=== PATIENT | male | born 1955 | race Caucasian/White ===

== ENCOUNTER 2019-05-25 08:02 | Outpatient (CLI) | payer BC, SELFPAY ==
--- NOTE | ~2019-05-25 | CT_ITS ---
EXAMINATION: CT lung screening EXAM DATE: 05/25/2019 08:43 INDICATION: Personal history of nicotine dependence. TECHNIQUE: Spiral low dose CT of the chest without contrast. Axial, coronal and sagittal images were reviewed. The dose-length product (DLP) for this examination was 108.99 mGy-cm. The exposure was t ailored according to patient size (auto mA exposure control), and iterative reconstruction (ASIR) was used as additional dose reduction technique. There is no prior study for comparison. FINDINGS: Left upper lobe calcified granuloma. The lungs are otherwise clear. Small amount of debr is within the trachea. There is moderate hyperinflation. Mild emphysema. There is no mediastinal, hi lar or axillary lymphadenopathy. There are no pleural or pericardial effusions. There is no pneum othorax. Heart normal in size. There is mild to moderate coronary arterial calcification, arteria l sclerosis. Aberrant right subclavian artery, congenital variant. Upper abdomen is unremarkable. There is thoracic spondylosis without osteoblastic or osteolytic lesions identified. IMPRESSION: Lung-RADS category 1, negative (<1%chance of malignancy); recommend continued LDCT screen ing in 1 year. Reviewed, dictated and finalized at location A. R SALES MANAGER IMPRESSION: Lung-RADS category 1, negative (<1%chance of malignancy); recommend continued LDCT screening in 1 year.
--- NOTE | ~2019-05-25 | CT_ITS ---
EXAMINATION: CT abdomen pelvis w con EXAM DATE: 05/25/2019 08:43 INDICATION: Right lower quadrant pain. TECHNIQUE: Spiral CT of the abdomen and pelvis was performed following intravenous injection of 100 m L Omnipaque 350. Axial, coronal and sagittal images were reviewed. The dose-length product (DLP) fo r this examination was 483.32 mGy-cm. The exposure was tailored according to patient size (auto mA e xposure control), and iterative reconstruction (ASIR) was used as additional dose reduction technique . There is no prior study for comparison. Correlation was made with noncontrast CT chest same date. FINDINGS: There is a right adrenal gland adenoma measuring 1.8 cm. The left adrenal gland, liver, fink creas are unremarkable. Splenic granulomata. Gallbladder is unremarkable. No biliary obstruction. Portal and splenic veins are patent. Kidneys enhance symmetrically. There is no hydronephrosis. Rig ht renal cyst measuring 1.6 cm. There is mild prostatomegaly. Some diffuse bladder wall thickening, could indicate chronic cystitis. Acute cystitis not excludable. There is no retroperitoneal or pelvi c lymphadenopathy. There is moderate scattered arteriosclerotic disease. Small umbilical, periumbil ical fat-containing hernias. The appendix is normal. The stomach and small bowel are unremarkable. There is expected amount of c olonic stool. There is moderate sigmoid predominant colonic diverticulosis. There is no adjacent inf lammatory change to suggest diverticulitis. The heart is normal in size. There are no pericardial or pleural effusions. The lung bases are unremarkable. There are no osteoblastic or osteolytic lesion s identified. There is chronic bilateral L5 spondylolysis with 3 mm anterolisthesis L5 on S1. IMPRESSION: 1. No acute intra-abdominal findings. 2. Sigmoid predominant colonic diverticulosis. 3. Small umbilical, periumbilical hernias. 4. Right adrenal adenoma. Reviewed, dictated and finalized at location A. OGRAMMETRIC TECH
[2019-05-25 08:33] LABS: Blood Urea Nitrogen 14 mg/dL (8-26); Estimated Glomerular Filt Rate > 60
[2019-05-25 09:10] LABS: Hematocrit 47.5 % (42.0-52.0); Hemoglobin 16.2 g/dL (14.0-18.0); Mean Corpuscular HGB Conc 34.1 g/dl (32-36); Mean Corpuscular Volume 93.9 fl (80-100); Mean Platelet Volume 11.6 fl (7.4-10.4); Platelet Count Result 194 k/mm3 (150-375); Red Blood Count 5.06 M/mm3 (4.6-6.20); Red Cell Distribution Width 14.7 % (11.5-14.5); White Blood Count 9.6 K/mm3 (4.5-10.0)
[2019-05-25 09:47] LABS: Alanine Aminotransferase 23 U/L (4-50); Alkaline Phosphatase 63 U/L (38-126); Aspartate Amino Transferase 24 U/L (17-59); Bilirubin,Total 0.5 mg/dL (0.2-1.3); Blood Urea Nitrogen 14 mg/dL (9-20); Calcium 9.1 mg/dL (8.4-10.2); Carbon Dioxide 24 mmol/L (22-30); Chloride 103 mmol/L (98-107); Estimated Glomerular Filt Rate > 60; Glucose 91 mg/dL (75-110); Potassium 4.3 mmol/L (3.4-5.0); Sodium 139 mmol/L (137-145)
[2019-05-25 09:53] LABS: Vitamin D 25 Hydroxy 26.9 ng/mL
[2019-05-30 13:55] LABS: Testosterone Free 76.3 pg/mL (35.0-155.0); Testosterone Total 426 ng/dL (250-1100)
== END 2019-05-25 08:03 | disposition home or self-care (01) ==
LOC: ANHIMG 08:48
PROVIDERS: PCP Family Medicine; Visit Provider Physician Assistant Medical
DX: Z12.2 Encounter for screening for malignant neoplasm of respiratory organs (principal); K42.9 Umbilical hernia without obstruction or gangrene; R10.31 Right lower quadrant pain; R10.32 Left lower quadrant pain; Z12.5 Encounter for screening for malignant neoplasm of prostate; E78.5 Hyperlipidemia, unspecified; R53.82 Chronic fatigue, unspecified; K57.30 Diverticulosis of large intestine without perforation or abscess without bleeding; Z87.891 Personal history of nicotine dependence; K44.9 Diaphragmatic hernia without obstruction or gangrene; D35.01 Benign neoplasm of right adrenal gland
CPT/HCPCS: 36415; 74177; 80053; 82306; 82607; 84153; 84402; 84403; 84443; 85027; G0297; Q9967

== ENCOUNTER 2019-05-31 01:43 | Day surgery (SDC) | payer BC, SELFPAY ==
[2019-05-25 15:07] VITALS: BMI 25.9
[2019-05-31 07:55] VITALS: BP 129/76; PULSE 62; RESP 16; TEMP 36.6; O2SAT 96
[2019-05-31] MEDS: LACTATED RINGERS 1,000 ML 150 ML IV CONT (07:57)
--- NOTE | 2019-05-31 08:09 | WPDANESEPPF ---
Anes - Initial Pre Proc Eval Procedure: Operation Date: 05/31/19 08:30 Proposed Procedures p Screening Colonoscopy - Wale Mix MD Date/Time: 05/31/19 08:09 Surgeon: Wale Mix MD Pre Op Diagnosis: Neoplasm Screening, Hx of Colon Polyps Patient Data Age: 63 Gender: M Height: 5 ft 10 in Weight: 81.4 kg Last Vital Signs Temp 36.6 C 05/31/19 07:55 Pulse 62 05/31/19 07:55 Resp 16 05/31/19 07:55 BP 129/76 05/31/19 07:55 Pulse Ox 96 05/31/19 07:55 Allergies Allergy/AdvReac Type Severity Reaction Status Date / Time No Known Allergies Allergy Verified 05/25/19 15:05 Home Medications Medication Instructions Recorded Confirmed Type rosuvastatin 40 mg tablet 40 mg PO DAILY #60 tablet 05/15/19 05/25/19 Rx Patient hx anesthesia problems: none Family hx anesthesia problems: none PMFSH Social History Social History Smoking status: Smoker, status unknown Alcohol intake: current Anes - Eval Final PreProcedure Day of Procedure 05/31/19 08:09 Patient weight: overweight Heart: regular rate and rhythm Lungs: clear to auscultation Airway: Mallampati scale class II and other (dentures) Neurological: alert and oriented Last oral intake: >/= 8 hours ASA classification: III Emergent: no Anesthetic plan: proceed Anesthesia type and monitoring: general GIVS and standard monitoring Informed Consent: The patient's anesthetic plan and its attendant risks and benefits were discussed with the patient/family/POA. Questions were solicited and answers provided to the satisfaction of the patient/family/POA.
--- NOTE | 2019-05-31 08:36 | P.CONGI_ITS ---
Assessment and Plan Additional Plan This is a 63-year-old white male patient seen in evaluation at the request of Dr. Aditya Valero. Patient presents for colonoscopy. Patient's last colonoscopy 2014 had several adenomatous colon polyps. Patient states that his current weight appetite bowel movements are normal. He denies any blood in his stools he denies abdominal pain. His weight has remained stable. Family history is significant 2 sisters have had colon polyps as well. Past medical history is significant for elevated cholesterol. Current medications include rosuvastatin. No known medical allergies. Physical exam reveals patient to be alert. Vital signs stable. HEENT exam unremarkable. Lungs are clear to auscultation and percussion. Heart is without murmur or extra sounds. Abdominal exam bowel sounds are present soft nontender with no organomegaly. Digital external rectal exam is normal. Impression 1. Personal history of colon polyps. 2. Family history of colon polyps. Plan is for surveillance colonoscopy now and at 5 year intervals in the future. GI Consult Note Consult date/time: 05/31/19 08:36 HPI: Agus Torres is a 63 year old male [facility] Social History Social History Smoking status: Smoker, status unknown Alcohol intake: current Meds Home Medications and Allergies Home Medications Medication Instructions Recorded Confirmed Type rosuvastatin 40 mg tablet 40 mg PO DAILY #60 tablet 05/15/19 05/25/19 Rx Allergies Allergy/AdvReac Type Severity Reaction Status Date / Time No Known Allergies Allergy Verified 05/25/19 15:05 Vital Signs Vital Signs - 24 hr 05/31/19 07:55 Temperature 36.6 C Pulse Rate 62 Respiratory Rate 16 Blood Pressure 129/76 Pulse Oximetry 96
[2019-05-31 09:03] VITALS: BP 111/72; PULSE 55; RESP 18; O2SAT 97
[2019-05-31 09:13] VITALS: BP 108/75; PULSE 52; RESP 18; O2SAT 97
[2019-05-31 09:23] VITALS: BP 112/74; PULSE 62; RESP 17; O2SAT 97
== END 2019-05-31 09:55 | disposition home or self-care (01) ==
PROVIDERS: PCP Family Medicine; Visit Provider Internal Medicine Gastroenterology
PROC: 0DJD8ZZ Inspection of Lower Intestinal Tract, Via Natural or Artificial Opening Endoscopic (ICD-10-PCS; CPT 45378; principal; 2019-05-31 08:30)
DX: Z12.11 Encounter for screening for malignant neoplasm of colon (principal); D12.5 Benign neoplasm of sigmoid colon; K63.5 Polyp of colon; K57.30 Diverticulosis of large intestine without perforation or abscess without bleeding; K64.8 Other hemorrhoids; Z83.71 Family history of colonic polyps; E78.00 Pure hypercholesterolemia, unspecified
CPT/HCPCS: 45385; 88305; J2704; J7120

== ENCOUNTER 2021-02-27 07:23 | Outpatient (CLI) | payer BC, SELFPAY ==
[2021-02-27 07:57] LABS: Hematocrit 45.7 % (42.0-52.0); Hemoglobin 15.9 g/dL (14.0-18.0); Mean Corpuscular HGB Conc 34.8 g/dl (32-36); Mean Corpuscular Hemoglobin 32.4 pg (26-34); Mean Corpuscular Volume 93.1 fl (80-100); Mean Platelet Volume 10.2 fl (7.4-10.4); Platelet Count Result 289 k/mm3 (150-375); Red Blood Count 4.91 M/mm3 (4.6-6.20); Red Cell Distribution Width 14.7 % (11.5-14.5); White Blood Count 11.2 K/mm3 (4.5-10.0)
[2021-02-27 08:13] LABS: Alanine Aminotransferase 22 U/L (4-50); Albumin Level 4.3 g/dL (3.5-5.1); Alkaline Phosphatase 55 U/L (38-126); Anion Gap 7 mmol/L (8-16); Aspartate Amino Transferase 23 U/L (17-59); Bilirubin,Total 0.6 mg/dL (0.2-1.3); Blood Urea Nitrogen 16 mg/dL (9-20); Calcium 8.9 mg/dL (8.4-10.2); Carbon Dioxide 25 mmol/L (22-30); Chloride 106 mmol/L (98-107); Cholesterol 239 mg/dL (0-200); Estimated Glomerular Filt Rate > 60; Glucose 102 mg/dL (65-110); HDL Direct 45 mg/dL; Potassium 3.9 mmol/L (3.4-5.0); Sodium 138 mmol/L (137-145); Triglycerides 215 mg/dL (<150)
[2021-02-27 08:24] LABS: LDL Cholesterol Direct 123 mg/dL
[2021-02-27 08:42] LABS: Prostate Specific Antigen 3.5 ng/mL (< OR = 4.0)
[2021-02-27 10:13] LABS: Vitamin D 25 Hydroxy 21.1 ng/mL
== END 2021-02-27 07:24 | disposition home or self-care (01) ==
PROVIDERS: PCP Family Medicine; Visit Provider Nurse Practitioner Family
DX: E78.5 Hyperlipidemia, unspecified (principal); Z72.0 Tobacco use; R73.09 Other abnormal glucose; Z13.29 Encounter for screening for other suspected endocrine disorder; E55.9 Vitamin D deficiency, unspecified; Z12.5 Encounter for screening for malignant neoplasm of prostate
CPT/HCPCS: 36415; 80053; 80061; 82306; 84153; 84443; 85027; G0103

== ENCOUNTER 2023-02-25 07:04 | Outpatient (CLI) | payer BC, SELFPAY ==
[2023-02-25 08:17] LABS: Hematocrit 47.1 % (42.0-52.0); Mean Corpuscular Volume 94.2 fl (80-100); Mean Platelet Volume 10.4 fl (7.4-10.4); Platelet Count Result 282 k/mm3 (150-375); White Blood Count 10.3 K/mm3 (4.5-10.0)
[2023-02-25 09:02] LABS: Vitamin D 25 Hydroxy 25.1 ng/mL
[2023-02-25 09:59] LABS: Alanine Aminotransferase 35 U/L (6-50); Albumin Level 4.3 g/dL (3.5-5.1); Alkaline Phosphatase 58 U/L (38-126); Anion Gap 4 mmol/L (8-16); Aspartate Amino Transferase 29 U/L (17-59); Bilirubin,Total 0.9 mg/dL (0.2-1.3); Blood Urea Nitrogen 14 mg/dL (9-20); Calcium 9.4 mg/dL (8.4-10.2); Carbon Dioxide 27 mmol/L (22-30); Chloride 107 mmol/L (98-107); Cholesterol 124 mg/dL (0-200); Estimated Glomerular Filt Rate > 60; Glucose 98 mg/dL (65-110); HDL Direct 45 mg/dL; Potassium 3.8 mmol/L (3.4-5.0); Sodium 138 mmol/L (137-145); Triglycerides 113 mg/dL (<150)
[2023-02-25 10:11] LABS: LDL Cholesterol Direct 54 mg/dL
[2023-02-25 10:31] LABS: Prostate Specific Antigen 3.8 ng/mL (< OR = 4.0)
== END 2023-02-25 07:05 | disposition home or self-care (01) ==
LOC: ANHLAB 07:06
PROVIDERS: PCP Family Medicine; Visit Provider Nurse Practitioner Family
DX: Z13.29 Encounter for screening for other suspected endocrine disorder (principal); E55.9 Vitamin D deficiency, unspecified; Z12.5 Encounter for screening for malignant neoplasm of prostate; R73.09 Other abnormal glucose; E78.5 Hyperlipidemia, unspecified
CPT/HCPCS: 36415; 80053; 80061; 82306; 84153; 84443; 85027; G0103

== ENCOUNTER 2024-07-04 07:14 | Outpatient (CLI) | payer MEDICARE, SELFPAY ==
--- OUTSIDE RECORDS SUMMARY | 2024-07-04 07:18 | XMS_ITS | Clinical Summary ---
Author Organization [facility] Address [address] [place] [id number] Phone [email or web address] [email or web address] Care Team Providers Care Rn Psychiatric Name Role Phone Unavailable Primary Care Provider Unavailabl e Social History Tobacco Use Types Packs/Day Years Used Date Smoking Tobacco: Never Assessed Intimate Partner Violence Answer Date R ecorded Insults You Not on file 07/29/2020 Threatens You Not on file 07/29/2020 Screams at You Not on file 07/29/2020 Physically Hurt Not on file 07/29/2020 Intimate Partner Violence Score Not on file 07/29/2020 Stress Answer Date Recorded Stress in your Life Not on file 02/20/2024 Dealing with Stress 3 02/20/2024 Sex and Gender Information Value Date Recorded Sex Assigned at Not on file Legal Sex 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
[2024-07-04 08:19] LABS: Basophils Absolute Auto 0.1 K/mm3 (0.0-0.1); Eosinophils Absolute Auto 0.9 K/mm3 (0-0.3); Eosinophils Percent Auto 9.9 % (0-4.4); Hematocrit 50.7 % (42.0-52.0); Hemoglobin 17.1 g/dL (14.0-18.0); Immature Granulocyte Absolute 0.11 K/mm3 (0.00-0.031); Immature Granulocyte Percent A 1.2 % (0-0.5); Lymphocytes Absolute Auto 1.56 K/mm3 (0.9-3.2); Lymphocytes Percent Auto 17.3 % (18.3-44.2); Mean Corpuscular HGB Conc 33.7 g/dl (32-36); Mean Corpuscular Hemoglobin 31.6 pg (26-34); Mean Corpuscular Volume 93.7 fl (80-100); Mean Platelet Volume 10.2 fl (7.4-10.4); Monocytes Absolute Auto 0.9 K/mm3 (0.1-0.6); Monocytes Percent Auto 9.4 % (2.6-8.5); Neutrophils Absolute Auto 5.5 K/mm3 (1.3-6.7); Neutrophils Percent Auto 61.2 % (45.5-73.1); Platelet Count Result 341 k/mm3 (150-375); Red Blood Count 5.41 M/mm3 (4.6-6.20); Red Cell Distribution Width 14.5 % (11.5-14.5)
[2024-07-04 08:28] LABS: Alanine Aminotransferase 25 U/L (6-50); Albumin Level 4.6 g/dL (3.5-5.1); Alkaline Phosphatase 67 U/L (38-126); Anion Gap 10 mmol/L (4-12); Aspartate Amino Transferase 25 U/L (17-59); Bilirubin,Total 1.1 mg/dL (0.2-1.3); Blood Urea Nitrogen 13 mg/dL (9-20); Calcium 9.3 mg/dL (8.4-10.2); Carbon Dioxide 24 mmol/L (22-30); Chloride 104 mmol/L (98-107); Cholesterol 258 mg/dL (0-200); Estimated Glomerular Filt Rate > 60; Glucose 103 mg/dL (65-110); HDL Direct 53 mg/dL; Potassium 3.9 mmol/L (3.4-5.0); Sodium 138 mmol/L (137-145); Triglycerides 189 mg/dL (<150)
[2024-07-04 08:40] LABS: LDL Cholesterol Direct 132 mg/dL
[2024-07-04 08:58] LABS: Prostate Specific Antigen 4.1 ng/mL (< OR = 4.0)
[2024-07-04 10:20] LABS: Vitamin D 25 Hydroxy 33.1 ng/mL
== END 2024-07-04 07:15 | disposition home or self-care (01) ==
PROVIDERS: PCP Family Medicine; Visit Provider Nurse Practitioner Family
DX: E55.9 Vitamin D deficiency, unspecified (principal); E78.5 Hyperlipidemia, unspecified; Z13.29 Encounter for screening for other suspected endocrine disorder; Z12.5 Encounter for screening for malignant neoplasm of prostate; Z13.1 Encounter for screening for diabetes mellitus; Z72.0 Tobacco use
CPT/HCPCS: 36415; 80053; 80061; 82306; 84153; 84443; 85025; G0103

== ENCOUNTER 2024-07-12 11:30 | Outpatient (CLI) | payer MEDICARE, SELFPAY ==
--- NOTE | ~2024-07-12 | CT_ITS ---
EXAMINATION: CT lung screening DATE: 07/12/2024 11:52 INDICATION: Screening for malignant neoplasm. TECHNIQUE: Computed tomography (CT) of the chest was performed without intravenous contrast. The dose -length product was 111.85 mGy-cm. Automated exposure control and iterative reconstruction technique were employed. COMPARISON: CT dated 05/25/2019 FINDINGS: No significant pleural or pericardial effusion. Heart size normal. No thoracic lymphadenopa thy. There is atherosclerosis. Possible small exophytic left renal mass on final image 127. Recommend correlation with CT abdomen without and with contrast. Stable 2 cm low-density right adrenal mass, c onsistent with adenoma. Calcified granulomas in the spleen. Calcified granulomas in the left upper lo be. IMPRESSION: 1. Lung-RADS category 1: Negative. Continue annual screening with noncontrast low-dose chest CT in 12 months. Reviewed, dictated and finalized at location A. IMPRESSION: 1. Lung-RADS category 1: Negative. Continue annual screening with noncontrast l ow-dose chest CT in 12 months.
== END 2024-07-12 11:31 | disposition home or self-care (01) ==
PROVIDERS: PCP Family Medicine; Visit Provider Nurse Practitioner Family
DX: Z12.2 Encounter for screening for malignant neoplasm of respiratory organs (principal); Z87.891 Personal history of nicotine dependence
CPT/HCPCS: 71271

== ENCOUNTER 2024-08-01 10:52 | Outpatient (CLI) | payer MEDICARE, SELFPAY ==
--- NOTE | ~2024-08-01 | CT_ITS ---
CT of the Abdomen: Indication: Other disorder kidney and ureter Technique: 2.5 mm axial scans were obtained through the abdomen prior to and following intravenous a dministration of 100 cc of Omnipaque 350. Dose reduction technique was used on this scan by utilizing automated exposure control and iterative reconstruction technique. The dose-length product (DLP) was 957.73 mGy-cm. COMPARISON: 05/25/2019 Findings: Scans through the lung bases are unremarkable. The liver, spleen, pancreas, gallbladder, left adrenal gland, and right kidney are within normal limi ts. 2 cm low-density right adrenal nodules compatible with adenoma. 14 mm hyperdense left renal cyst present, without postcontrast enhancement. There are atherosclerotic calcifications of the aorta and iliac vessels. No lymphadenopathy. . Visualized bowel loops are unremarkable. No ascites. Small fat-containing umbilical hernia. Bilateral L5 pars interarticularis defects are present. Impression: Stable right adrenal adenoma. 14 mm hyperdense left renal cyst. Reviewed, dictated and finalized at [facility]. Impression: Stable right adrenal adenoma. 14 mm hyperdense left renal cyst.
[2024-08-01 11:16] LABS: Estimated Glomerular Filt Rate > 60
== END 2024-08-01 10:53 | disposition home or self-care (01) ==
LOC: MICIMG 10:53
PROVIDERS: PCP Family Medicine; Visit Provider Nurse Practitioner Family
DX: D35.01 Benign neoplasm of right adrenal gland (principal); N28.89 Other specified disorders of kidney and ureter
CPT/HCPCS: 74170; Q9967

== ENCOUNTER 2024-09-21 09:49 | Outpatient (CLI) | payer MEDICARE, SELFPAY ==
[2024-09-21 10:13] LABS: Basophils Absolute Auto 0.1 K/mm3 (0.0-0.1); Basophils Percent Auto 0.7 % (0.2-1.2); Eosinophils Percent Auto 9.5 % (0-4.4); Hematocrit 49.9 % (42.0-52.0); Hemoglobin 16.8 g/dL (14.0-18.0); Immature Granulocyte Absolute 0.07 K/mm3 (0.00-0.031); Immature Granulocyte Percent A 0.7 % (0-0.5); Lymphocytes Absolute Auto 1.82 K/mm3 (0.9-3.2); Lymphocytes Percent Auto 17.5 % (18.3-44.2); Mean Corpuscular HGB Conc 33.7 g/dl (32-36); Mean Corpuscular Hemoglobin 31.2 pg (26-34); Mean Corpuscular Volume 92.8 fl (80-100); Monocytes Absolute Auto 0.9 K/mm3 (0.1-0.6); Monocytes Percent Auto 8.6 % (2.6-8.5); Neutrophils Absolute Auto 6.6 K/mm3 (1.3-6.7); Platelet Count Result 283 k/mm3 (150-375); Red Blood Count 5.38 M/mm3 (4.6-6.20); Red Cell Distribution Width 14.6 % (11.5-14.5); White Blood Count 10.4 K/mm3 (4.5-10.0)
--- OUTSIDE RECORDS SUMMARY | 2024-09-21 10:36 | XMS_ITS | Clinical Summary ---
Author Organization [facility] Address [address] [place] [phone] Phone [email or web address] [email or web address] Care Team Providers Care Lathe Tender Name Role Phone Unavailable Primary Care Provider [...] on file Legal Sex Male 8:27 AM ADULT MANAGER Gender Identity Not on file Sexual Orientation Not on file Last Filed Vital Signs Vital Sign Reading Time Taken Comments Blood Pressure 126/76 02/25/2023 12:00 AM ADULT MANAGER Pulse - - Temperature - - Respiratory Rate - - Oxygen Saturation - - Inhaled Oxygen Concentration - - Weight 83.5 kg (184 lb) 02/25/2023 12:00 AM ADULT MANAGER Height 177.8 cm (5' 10) 02/25/2023 12:00 AM ADULT MANAGER Body Mass Index 26.4 02/25/2023 12:00 AM ADULT MANAGER Plan of Treatment Not on file
[2024-09-21 11:13] LABS: Prostate Specific Antigen 3.4 ng/mL (< OR = 4.0)
== END 2024-09-21 09:50 | disposition home or self-care (01) ==
LOC: ANHLAB 09:51
PROVIDERS: PCP Family Medicine; Visit Provider Nurse Practitioner Family
DX: R79.89 Other specified abnormal findings of blood chemistry (principal); Z12.5 Encounter for screening for malignant neoplasm of prostate
CPT/HCPCS: 36415; 84153; 85025; G0103

== ENCOUNTER 2024-10-27 00:25 | Day surgery (SDC) | payer MEDICARE, SELFPAY ==
[2024-10-10 09:39] VITALS: BMI 28.0
--- OUTSIDE RECORDS SUMMARY | 2024-10-27 00:26 | XMS_ITS | Clinical Summary ---
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
[2024-10-27 09:44] VITALS: BP 119/86; PULSE 81; RESP 18; TEMP 36.6; O2SAT 96; BMI 25.9
[2024-10-27] MEDS: LACTATED RINGERS 1,000 ML 150 ML IV CONT (09:54)
--- NOTE | 2024-10-27 10:32 | PM.HPGS ---
History of Present Illness History of Present Illness Consent: Risks, benefits, and alternatives have been discussed and questions answered. Patient agrees to proceed with procedure. Chief complaint: Neoplasm screening Narrative: Agus Torres is a 68 year old male with colon polyp in 2019 Review of Systems Review of Systems: All systems reviewed & are unremarkable except as noted in HPI and below PMFSH Past Medical History Medical History (Updated 10/27/24 @ 10:32 by Martín Foley MD) Colon polyp Left renal mass Nicotine dependence, unspecified, uncomplicated Skin exam for malignant neoplasm Skin lesion of face Pain of right shoulder region Umbilical hernia without obstruction and without gangrene Other hyperlipidemia BMI 26.0-26.9,adult BMI 25.0-25.9,adult Family History Family History Father Heart disease Mother No problems noted. Sibling No problems noted. Social History Social History Smoking packs per day: 1 Smoking cigarettes per day: 20.0 Years smoked: 45 Smoking pack-years: 45.00 Smoking status: Current every day smoker Tobacco type: cigarettes (1ppd) Second hand tobacco smoke exposure: Yes Alcohol intake: current Substance use: never Substance use type: does not use Do You Feel Safe in your Home?: Yes Lack of Transportation: No Lack of Food: Never True Current Housing: I Have Housing Concerned About Future Housing: No Difficulty Paying Gas/Electric Bills: No Difficulty Paying for Meds: No Currently Unemployed: No Education: Bachelor's Degree Difficulty w/ Childcare or Family Care: No Living arrangements: with family Occupation/Education: occupation Additional occupation/education comments: sales Gender identity (if verbalized by the patient): Male Meds Home Medications and Allergies Home Medications ?Medication ?Instructions ?Recorded ?Confirmed ?Type rosuvastatin 40 mg tablet (Crestor) 40 mg PO DAILY #90 tabs 07/03/24 10/27/24 Rx Allergies Allergy/AdvReac Type Severity Reaction Status Date / Time No Known Allergies Allergy Verified 10/27/24 09:43 Vital Signs Vital Signs - 24 hr 10/27/24 09:44 Temperature 97.9 F Pulse Rate 81 Respiratory Rate 18 Blood Pressure 119/86 Pulse Oximetry 96 Oxygen Delivery Room Air Exam Const: General: comfortable and no acute distress HENMT: Face/Nose/Sinus: Normal nares present Eyes: General: appearance normal, both eyes and all related structures Neck: Neck: no JVD Resp: Auscultation: clear to auscultation bilaterally Cardio: Rate: regular rate Rhythm: regular rhythm GI: Inspection: non-distended GI Palp: Yes Soft to palpation Skin: General skin exam: normal color Neuro: Speech: normal speech Extrem: General: normal to inspection Psych: Mental Status: mental status grossly normal Assessment and Plan Assessment and plan (1) Colon polyp: Code(s): K63.5 - Polyp of colon Status: Acute Assessment and Plan: colonoscopy
--- NOTE | 2024-10-27 10:38 | P.PNAN_ITS ---
Anes - Initial Pre Proc Eval Procedure: Operation Date: 10/27/24 11:00 Proposed Procedures p Screening Colonoscopy - Martín Foley MD Date/Time: 10/27/24 10:38 Surgeon: Martín Foley MD Pre Op Diagnosis: Neoplasm screening Patient Data Age: 68 Gender: M Height: 1.75 m Weight: 79.8 kg Last Vital Signs Temp 36.6 C 10/27/24 09:44 Pulse 81 10/27/24 09:44 Resp 18 10/27/24 09:44 BP 119/86 10/27/24 09:44 Pulse Ox 96 10/27/24 09:44 O2 Del Method Room Air 10/27/24 09:44 Allergies Allergy/AdvReac Type Severity Reaction Status Date / Time No Known Allergies Allergy Verified 10/27/24 09:43 Home Medications ?Medication ?Instructions ?Recorded ?Confirmed ?Type rosuvastatin 40 mg tablet (Crestor) 40 mg PO DAILY #90 tabs 07/03/24 10/27/24 Rx Patient hx anesthesia problems: none Family hx anesthesia problems: none Results Review: All pre-operative results and documents have been reviewed as part of the pre- operative evaluation. [facility] Past Medical History Medical History Colon polyp Left renal mass Nicotine dependence, unspecified, uncomplicated Skin exam for malignant neoplasm Skin lesion of face Pain of right shoulder region Umbilical hernia without obstruction and without gangrene Other hyperlipidemia BMI 26.0-26.9,adult BMI 25.0-25.9,adult Family History Family History Father Heart disease Mother No problems noted. Sibling No problems noted. Social History Social History Smoking packs per day: 1 Smoking cigarettes per day: 20.0 Years smoked: 45 Smoking pack-years: 45.00 Smoking status: Current every day smoker Tobacco type: cigarettes (1ppd) Second hand tobacco smoke exposure: Yes Alcohol intake: current Substance use: never Substance use type: does not use Do You Feel Safe in your Home?: Yes Lack of Transportation: No Lack of Food: Never True Current Housing: I Have Housing Concerned About Future Housing: No Difficulty Paying Gas/Electric Bills: No Difficulty Paying for Meds: No Currently Unemployed: No Education: Bachelor's Degree Difficulty w/ Childcare or Family Care: No Living arrangements: with family Occupation/Education: occupation Additional occupation/education comments: sales Gender identity (if verbalized by the patient): Male Jorge A - Brittanieteddy Final PreProcedure Day of Procedure 10/27/24 10:38 Patient weight: overweight Heart: regular rate and rhythm Lungs: decreased breath sounds Airway: Mallampati scale class III Neurological: alert and oriented Last oral intake: >/= 8 hours ASA classification: III Emergent: no Anesthetic plan: proceed Anesthesia type and monitoring: general GIVS and standard monitoring Results Review: All pre-operative results and documents have been reviewed as part of the pre- operative evaluation. Informed Consent: The patient's anesthetic plan and its attendant risks and benefits were discussed with the patient/family/POA. Questions were solicited and answers provided to the satisfaction of the patient/family/POA.
--- NOTE | 2024-10-27 10:54 | S_PTH ---
PATIENT: Agus Torres LOC: [facility]#:[id number] AGE/SX: 68/M ROOM: RE10/27/[address]: Martín Foley MD : 1955 BED: DIS: 10/27/2024 SPEC #: [id number] RECD: 10/27/24 13:14 STATUS: FARZANEH REDamaris #: [id number] ANTHONY: 10/27/24 10:[address]: Martín Foley DEPT: [facility] Surgical RECD BY: Paulette Gramajo ENTERED: 10/27/24 13:16 SP TYPE: Surgical OTHR DR: Aditya Valero MD Tissues: A - Colon Polypectomy B - Colon Polypectomy C - Colon Polypectomy Procedures: Hematoxylin and Eosin Stain Gross and Microscopic Level 4
[2024-10-27 10:57] VITALS: BP 106/68; PULSE 66; RESP 28; O2SAT 96
[2024-10-27 11:07] VITALS: BP 114/62; PULSE 67; RESP 25; O2SAT 96
[2024-10-27 11:15] VITALS: BP 122/82; PULSE 59; RESP 23; O2SAT 96
== END 2024-10-27 11:24 | disposition home or self-care (01) ==
PROVIDERS: PCP Family Medicine; Referring Provider Nurse Practitioner Family; Visit Provider Internal Medicine Gastroenterology
PROC: 0DJD8ZZ Inspection of Lower Intestinal Tract, Via Natural or Artificial Opening Endoscopic (ICD-10-PCS; CPT 45378; principal; 2024-10-27 11:00)
DX: Z12.11 Encounter for screening for malignant neoplasm of colon (principal); D12.2 Benign neoplasm of ascending colon; D12.4 Benign neoplasm of descending colon; K63.5 Polyp of colon; K57.30 Diverticulosis of large intestine without perforation or abscess without bleeding; K64.8 Other hemorrhoids; F17.210 Nicotine dependence, cigarettes, uncomplicated
CPT/HCPCS: 45385; 88305; J2003; J2704; J7120